=== PATIENT | male | born 2000 | race African-American/Black ===

== ENCOUNTER 2020-06-27 12:08 | Emergency (ER) | payer BC ==
[2020-06-27] MEDS ORDERED: Sodium Chloride 0.9% 10 ML Syringe FLUSH PRN (12:33)
[2020-06-27] MEDS ORDERED: Sodium Chloride 0.9% 1,000 ML IV STA (12:33)
[2020-06-27] MEDS ORDERED: Ondansetron 4 MG/2 ML SDV IVPUSH ONE (12:33)
--- NOTE | 2020-06-27 12:56 | EDM.PDOC ---
ED HPI GENERAL MEDICAL PROBLEM - General Chief Complaint: General Stated Complaint: LOW BP/SENT FROM [facility] Time Seen by Provider: 06/27/20 12:24 Source of Information: Reports: Patient, Family (Mother) History Limitations: Reports: No Limitations - History of Present Illness INITIAL COMMENTS - FREE TEXT/NARRATIVE: The patient presents with his mother from the walk in clinic for low blood pressure. He went there to be seen for nausea, vomiting, diarrhea, muscle aches, dizziness and chills. This has been going on for about a day. He went over to [facility] for help and his blood pressure was 80 systolic. They sent him over for further evaluation. He is a type I diabetic on insulin and his blood sugars have been low. He has no headache, chest pain, shortness of breath or cough. He does not think he has been around anyone with COVID 19. Onset: Gradual Duration: Day(s): Location: Reports: Abdomen Quality: Reports: Ache Severity: Mild Improves with: Reports: None Worsens with: Reports: None Associated Symptoms: Reports: Fever/Chills, Nausea/Vomiting. Denies: Chest Pain, Cough, Headaches, Shortness of Breath - Related Data Allergies Allergy/AdvReac Type Severity Reaction Status Date / Time No Known Allergies Allergy Verified 06/27/20 12:18 Home Meds: Home Meds Ondansetron [Zofran ODT] 4 mg PO Q6H PRN #20 tab.dis 06/27/20 [Rx] Past Medical History Endocrine/Metabolic History: Reports: Diabetes, Type II - Infectious Disease History Infectious Disease History: Reports: Influenza Social & Family History - Tobacco Use Tobacco Use Status *Q: Never Tobacco User Second Hand Smoke Exposure: No - Caffeine Use Caffeine Use: Reports: None - Recreational Drug Use Recreational Drug Use: No ED ROS GENERAL - Review of Systems Review Of Systems: See Below Constitutional: Reports: Chills, Weakness, Fatigue HEENT: Reports: No Symptoms Respiratory: Reports: No Symptoms Cardiovascular: Reports: No Symptoms Endocrine: Reports: No Symptoms GI/Abdominal: Reports: Abdominal Pain, Diarrhea, Nausea, Vomiting : Reports: No Symptoms Musculoskeletal: Reports: Muscle Pain ED EXAM, GENERAL - Physical Exam Exam: See Below Exam Limited By: No Limitations General Appearance: Alert, No Apparent Distress Ears: Normal External Exam Nose: Normal Inspection Head: Atraumatic, Normocephalic Neck: Normal Inspection Respiratory/Chest: No Respiratory Distress, Lungs Clear, Normal Breath Sounds Cardiovascular: Regular Rate, Rhythm, No Edema, No Murmur GI/Abdominal: Soft, Non-Tender, No Organomegaly, No Mass Back Exam: Normal Inspection Extremities: Normal Inspection Neurological: Alert, Oriented, No Motor/Sensory Deficits Course - Vital Signs Last Recorded V/S: Last Vital Signs Temp 98.3 F 06/27/20 12:14 Pulse 100 06/27/20 12:14 Resp 14 06/27/20 12:14 BP 113/75 06/27/20 12:14 Pulse Ox 100 06/27/20 12:14 - Orders/Labs/Meds Orders: Active Orders 24 hr Category Date Time Status Peripheral IV Care [RC] . DIRECTED Care 06/27/20 12:33 Active COMPREHENSIVE METABOLIC PN,CMP [CHEM] Stat Lab 06/27/20 12:55 Results KETONES,BLOOD [CHEM] Stat Lab 06/27/20 12:55 Received LIPASE [CHEM] Stat Lab 06/27/20 12:55 Results OSMOLALITY,SERUM [CHEM] Stat Lab 06/27/20 12:55 Results UA W/MICROSCOPIC [URIN] Stat Lab 06/27/20 12:33 Ordered Sodium Chloride 0.9% [Saline Flush] Med 06/27/20 12:33 Active 10 ml FLUSH ASDIRECTED PRN ED Antiemetic Medication Reflex [OM.PC] Stat Oth 06/27/20 12:33 Ordered Peripheral IV Insertion Adult [OM.PC] Stat Oth 06/27/20 12:33 Ordered Medication Orders Sodium Chloride (Sodium Chloride 0.9% 10 Ml Syringe) 10 ml FLUSH ASDIRECTED PRN PRN Reason: Keep Vein Open Last Admin: 06/27/20 13:06 Dose: 10 ml Documented by: PAULINE Labs: Laboratory Tests 06/27/20 06/27/20 06/27/20 Range/Units 12:55 12:55 12:58 WBC 11.42 H (4.23-9.07) K/mm3 RBC 5.47 (4.63-6.08) M/mm3 Hgb 16.1 (13.7-17.5) gm/dl Hct 48.4 (40.1-51.0) % MCV 88.5 (79.0-92.2) fl MCH 29.4 (25.7-32.2) pg MCHC 33.3 (32.2-35.5) g/dl RDW Std Deviation 36.5 (35.1-43.9) fL Plt Count 238 (163-337) K/mm3 MPV 12.1 (9.4-12.3) fl Neut % (Auto) 90.9 H (34.0-67.9) % Lymph % (Auto) 3.4 L (21.8-53.1) % Fountain % (Auto) 5.1 L (5.3-12.2) % Eos % (Auto) 0.4 L (0.8-7.0) Baso % (Auto) 0.0 L (0.1-1.2) % Neut # (Auto) 10.38 H (1.78-5.38) K/mm3 Lymph # (Auto) 0.39 L (1.32-3.57) K/mm3 Fountain # (Auto) 0.58 (0.30-0.82) K/mm3 Eos # (Auto) 0.05 (0.04-0.54) K/mm3 Baso # (Auto) 0.00 L (0.01-0.08) K/mm3 Manual Slide Review Abnormal smear VBG pH 7.36 (7.30-7.40) Sodium 139 (136-145) mEq/L Potassium 4.3 (3.5-5.1) mEq/L Chloride 100 (98-107) mEq/L Carbon Dioxide 28 (21-32) mEq/L Anion Gap 15.3 H (5-15) BUN 22 H (7-18) mg/dL Creatinine 1.0 (0.7-1.3) mg/dL Est Cr Clr Drug Dosing 126.25 mL/min Estimated GFR (MDRD) > 60 (>60) mL/min BUN/Creatinine Ratio 22.0 H (14-18) Glucose 256 H (74-106) mg/dL Calcium 9.4 (8.5-10.1) mg/dL Total Bilirubin 1.2 H (0.2-1.0) mg/dL AST 16 (15-37) U/L ALT 19 (16-63) U/L Alkaline Phosphatase 61 (46-116) U/L Total Protein 8.2 (6.4-8.2) g/dl Albumin 4.7 (3.4-5.0) g/dl Globulin 3.5 gm/dL Albumin/Globulin Ratio 1.3 (1-2) Lipase 50 L (73-393) U/L SARS-CoV-2 RNA (MAJOR) (NEGATIVE) 06/27/20 Range/Units 13:04 WBC (4.23-9.07) K/mm3 RBC (4.63-6.08) M/mm3 Hgb (13.7-17.5) gm/dl Hct (40.1-51.0) % MCV (79.0-92.2) fl MCH (25.7-32.2) pg MCHC (32.2-35.5) g/dl RDW Std Deviation (35.1-43.9) fL Plt Count (163-337) K/mm3 MPV (9.4-12.3) fl Neut % (Auto) (34.0-67.9) % Lymph % (Auto) (21.8-53.1) % Fountain % (Auto) (5.3-12.2) % Eos % (Auto) (0.8-7.0) Baso % (Auto) (0.1-1.2) % Neut # (Auto) (1.78-5.38) K/mm3 Lymph # (Auto) (1.32-3.57) K/mm3 Fountain # (Auto) (0.30-0.82) K/mm3 Eos # (Auto) (0.04-0.54) K/mm3 Baso # (Auto) (0.01-0.08) K/mm3 Manual Slide Review VBG pH (7.30-7.40) Sodium (136-145) mEq/L Potassium (3.5-5.1) mEq/L Chloride (98-107) mEq/L Carbon Dioxide (21-32) mEq/L Anion Gap (5-15) BUN (7-18) mg/dL Creatinine (0.7-1.3) mg/dL Est Cr Clr Drug Dosing mL/min Estimated GFR (MDRD) (>60) mL/min BUN/Creatinine Ratio (14-18) Glucose (74-106) mg/dL Calcium (8.5-10.1) mg/dL Total Bilirubin (0.2-1.0) mg/dL AST (15-37) U/L ALT (16-63) U/L Alkaline Phosphatase (46-116) U/L Total Protein (6.4-8.2) g/dl Albumin (3.4-5.0) g/dl Globulin gm/dL Albumin/Globulin Ratio (1-2) Lipase (73-393) U/L SARS-CoV-2 RNA (MAJOR) Negative (NEGATIVE) Meds: Medications Generic Name Dose Route Start Last Admin Trade Name Freq PRN Reason Stop Dose Admin Sodium Chloride 10 ml 06/27/20 12:33 06/27/20 13:06 Sodium Chloride 0.9% 10 Ml Syringe FLUSH 10 ml ASDIRECTED PRN Administration Keep Vein Open Discontinued Medications Generic Name Dose Route Start Last Admin Trade Name Freq PRN Reason Stop Dose Admin Sodium Chloride 1,000 mls @ 1,000 mls/hr 06/27/20 12:33 06/27/20 12:58 Normal Saline IV 06/27/20 13:32 1,000 mls/hr .BOLUS STA Administration Ondansetron HCl 4 mg 06/27/20 12:33 06/27/20 12:58 Ondansetron 4 Mg/2 Ml Sdv IVPUSH 06/27/20 12:34 4 mg ONETIME ONE Administration - Re-Assessments/Exams Free Text/Narrative Re-Assessment/Exam: 06/27/20 12:58 I ordered an IV NS 1L bolus, zofran 4mg IV, labs and UA. 06/27/20 14:35 His WBC was elevated at 11.42. His pH was normal at 7.36. His anion gap is elevated at 15.3. His glucose is elevated at 256. His lipase is low at 50. His COVID 19 is negative. He feels better. I will discharge him home. Departure - Departure Time of Disposition: 14:40 Disposition: Home, Self-Care 01 Condition: Good Clinical Impression: Gastroenteritis - Discharge Information *PRESCRIPTION DRUG MONITORING PROGRAM REVIEWED*: Not Applicable *COPY OF PRESCRIPTION DRUG MONITORING REPORT IN PATIENT MAX: Not Applicable Prescriptions: Ondansetron [Zofran ODT] 4 mg PO Q6H PRN #20 tab.dis PRN Reason: Nausea\vomiting Referrals: PCP,None [Primary Care Provider] - Forms: ED Department Discharge Additional Instructions: Drink plenty of fluids. Take your medication as prescribed. Take the zofran every 6 hours as needed for nausea and vomiting. Please return if you are worse. Sepsis Event Note (ED) - Evaluation Sepsis Screening Result: No Definite Risk - Focused Exam Vital Signs: Vital Signs Temp Pulse Resp BP Pulse Ox 06/27/20 12:14 98.3 F 100 14 113/75 100 - My Orders Last 24 Hours: My Active Orders 06/27/20 12:33 Peripheral IV Care [RC] . DIRECTED UA W/MICROSCOPIC [URIN] Stat Sodium Chloride 0.9% [Saline Flush] 10 ml FLUSH ASDIRECTED PRN ED Antiemetic Medication Reflex [OM.PC] Stat Peripheral IV Insertion Adult [OM.PC] Stat 06/27/20 12:55 COMPREHENSIVE METABOLIC PN,CMP [CHEM] Stat KETONES,BLOOD [CHEM] Stat LIPASE [CHEM] Stat OSMOLALITY,SERUM [CHEM] Stat - Assessment/Plan Last 24 Hours: My Active Orders 06/27/20 12:33 Peripheral IV Care [RC] . DIRECTED UA W/MICROSCOPIC [URIN] Stat Sodium Chloride 0.9% [Saline Flush] 10 ml FLUSH ASDIRECTED PRN ED Antiemetic Medication Reflex [OM.PC] Stat Peripheral IV Insertion Adult [OM.PC] Stat 06/27/20 12:55 COMPREHENSIVE METABOLIC PN,CMP [CHEM] Stat KETONES,BLOOD [CHEM] Stat LIPASE [CHEM] Stat OSMOLALITY,SERUM [CHEM] Stat
== END 2020-06-27 14:53 | disposition home or self-care (01) ==
LOC: JD.ED 12:08
DX: K52.9 Noninfective gastroenteritis and colitis, unspecified (principal); I95.9 Hypotension, unspecified; E10.9 Type 1 diabetes mellitus without complications; Z20.822 Contact with and (suspected) exposure to COVID-19
CPT/HCPCS: 36415; 80053; 81001; 82009; 82800; 83690; 83930; 85025; 87635; 96374; 99284; J2405; J7030; 99283; U0002